=== PATIENT | female | born 1945 | race Caucasian/White ===

== ENCOUNTER 2020-09-10 06:22 | Day surgery (SDC) | payer MEDICARE, OTHER ==
[2020-09-10] MEDS ORDERED: Lactated Ringers 1,000 ML IV SCH (07:00)
[2020-09-10] MEDS ORDERED: Cyanocobalamin (Vitamin B12) 1,000 MCG/ML SDV IM ONE (07:15)
[2020-09-10] MEDS ORDERED: fentaNYL 100 MCG/2 ML SDV ONE (07:16)
[2020-09-10] MEDS ORDERED: Propofol 200 MG/20 ML SDV ONE (07:16)
[2020-09-10] MEDS ORDERED: Midazolam 1 MG/ML 2 ML SDV ONE (07:16)
[2020-09-10] MEDS ORDERED: MVI, Adult with Vitamin K 10 ML, Thiamine 200 MG, Chromium/Copper/Mang/Selen/Zn 1 ML in... IV ONE ×4 (08:15)
[2020-09-10] MEDS ORDERED: Pantoprazole 40 MG Vial IVPUSH ONE (08:28)
--- NOTE | 2020-09-27 12:01 | OR ---
DATE OF PROCEDURE: 09/10/2020 SURGEON: José Miguel Meeks MD PREOPERATIVE DIAGNOSIS: Dysphagia at: 1. Laryngopharyngeal level. 2. Distal esophageal level with mid epigastric and lower retrosternal discomfort. POSTOPERATIVE DIAGNOSIS: Mild-appearing marginal ulcer. OPERATIVE PROCEDURE: Upper gastrointestinal endoscopy with biopsies of gastric pouch for CLOtest. ANESTHESIA: IV sedation. INDICATIONS FOR PROCEDURE: The patient is status post Brittany-en-Y gastric bypass who presents with some dysphagia referable to laryngopharyngeal area as well as some discomfort and dysphagia referable to the area around the gastric pouch and gastrojejunostomy. 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 The plan is to proceed with upper GI endoscopy with biopsies and/or dilation as indicated. Potential risks including bleeding and perforation were discussed, and the patient wishes to proceed. DETAILS OF PROCEDURE: The patient was taken to the operating room and placed in the left lateral decubitus position. IV sedation was administered after which the upper GI endoscope was passed orally through the length of the esophagus and into the gastric pouch, and through the gastrojejunostomy, roughly 20 cm into the Brittany limb. Findings included a normal-appearing larynx and pharynx. The upper esophageal sphincter and esophageal body were likewise unremarkable. The gastric pouch had no significant inflammation, and there was no stricturing at the gastrojejunostomy. There was a mild marginal ulcer with the jejunal mucosa immediately beyond the gastrojejunostomy showing superficial redness and some scant fibrinous exudate. Apart from that, no abnormalities were noted. The remainder of the visualized portion of the Brittany limb was unremarkable. Biopsies were obtained from the gastric pouch and sent for CLOtest for H pylori. Minimal bleeding from the biopsy site was seen. One additional finding was that there did not appear to be any recurrence of the hiatal hernia. At this point, the plan will be to give the patient some IV Protonix in the recovery room and then start the patient on Protonix 40 mg daily. This should probably be continued long- term, but de-escalation could be considered overtime in terms of perhaps every other day treatment or switching over to a histamine ines such as Pepcid. The patient will be set up for a virtual visit with Dorothy Olmedo in 1 months' time. José Miguel Meeks MD /[id number]
== END 2020-09-10 11:10 | disposition home or self-care (01) ==
LOC: JP.SDS 06:22
PROVIDERS: ATTEND Surgery
DX: K28.9 Gastrojejunal ulcer, unspecified as acute or chronic, without hemorrhage or perforation (principal); K21.9 Gastro-esophageal reflux disease without esophagitis; E11.9 Type 2 diabetes mellitus without complications; E03.9 Hypothyroidism, unspecified; Z98.84 Bariatric surgery status; Z88.2 Allergy status to sulfonamides; Z88.8 Allergy status to other drugs, medicaments and biological substances
CPT/HCPCS: 87081; C9113; J2250; J2704; J3010; J3411; J3420; J7120